=== PATIENT | male | born 1985 | race Caucasian/White ===

== ENCOUNTER 2021-07-15 12:01 | Emergency (ER) | payer SELFPAY ==
[~2021-07-15] VITALS: Ht 177.8 cm; Wt 65.8 kg
--- NOTE | 2021-07-15 12:05 | NUR ---
[id number], FOUND UNRESPONSIVE AT A DUMPSTER. 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 BS 97. PT IS VERBALLY RESPONSIVE. PATIENT IS SLEEPY BUT AROUSABLE. COMPLAINING OF BODY ITCHY. PLACED COMFORTABLY IN BED. VITALS CHECKED.
[2021-07-15] MEDS ORDERED: NALO4SPR BNOSTRILS (12:42)
--- NOTE | 2021-07-15 15:30 | NUR ---
PT IS AWAKE, AMBULATORY W/ STEADY GAIT. WAS PROVIDED W/ MEAL TRAY. DISCHARGE IN STABLE CONDITION.
[2021-07-15 16:05] VITALS: BP 132/84
== END 2021-07-15 15:30 | disposition home or self-care (01) ==
LOC: ER 12:08
DX: T40.601A Poisoning by unspecified narcotics, accidental (unintentional), initial encounter (principal); Z59.00 Homelessness unspecified; Y92.89 Other specified places as the place of occurrence of the external cause

== ENCOUNTER 2021-09-06 14:38 | Emergency (ER) | payer MEDICAID ==
[~2021-09-06] VITALS: Ht 180.3 cm; Wt 68.5 kg
[~2021-09-06 14:38] MED LIST: NALO4SPR BNOSTRILS
--- NOTE | 2021-09-06 14:55 | NUR ---
BLOOD DRAWN AND SENT TO LAB
--- NOTE | 2021-09-06 14:55 | NUR ---
[id number] FOUND LAYING ON THE STREET UNRESPONSIVE, GIVEN NARCAN 2MG IM & 1MG IVPUSH IN FIELD. AAOX3. BG 244. PLACED COMFORTABLY IN BED. ATTACHED TO MONITOR. VITALS CHECKED.
--- NOTE | 2021-09-06 15:30 | NUR ---
URINE SPECIMEN SENT TO LAB
[2021-09-06] MEDS ORDERED: NALO4SPR BNOSTRILS (17:42)
--- NOTE | 2021-09-06 18:08 | NUR ---
Patient discharged to home in stable condition. Written and verbal after care instructions given. Patient verbalizes understanding of instruction.
--- NOTE | 2021-09-06 18:08 | NUR ---
IV CANNULA REMOVED
[2021-09-06 18:11] VITALS: BP 114/68
--- NOTE | 2021-09-06 18:12 | NUR ---
PATIENT REFUSED TO ACCEPT THE DISCHARGE PAPER
== END 2021-09-06 18:12 | disposition home or self-care (01) ==
LOC: ER 14:42
DX: T40.41 Poisoning by, adverse effect of and underdosing of fentanyl or fentanyl analogs (principal); R41.82 Altered mental status, unspecified; F17.200 Nicotine dependence, unspecified, uncomplicated; Z59.00 Homelessness unspecified; Z79.899 Other long term (current) drug therapy; Y92.89 Other specified places as the place of occurrence of the external cause